=== PATIENT | male | born 1995 | race Caucasian/White ===

== ENCOUNTER 2017-09-16 17:30 | Emergency (ER) | payer OTHER ==
[2017-09-16 17:36] VITALS: BP 126/75; PULSE 80; TEMP 98.1; BMI 31.6
--- NOTE | 2017-09-16 18:03 | PDOC ---
History of Present Illness - General Chief Complaint: Injury Stated Complaint: INJURY Time Seen by Provider: 09/16/17 17:46 History Source: Patient Exam Limitations: No Limitations - History of Present Illness Initial Comments: 09/16/17 18:06 Patient came for evaluation of left wrist pain. States 2 days ago while at work , was lifting heavy garbage bags and felt an acute onset of pain with a small pop to his left breast. Since that time has had difficulty carrying heavy items with pain reproduced at wrist joint primarily dorsum of hand. No numbness or tingling to fingers, no swelling, no fevers or erythema. Occurred: reports: yesterday Severity: reports: mild, moderate Pain Location: reports: upper extremity (left wrist) Method of Injury: Yes: unknown, other (heavy lifting ) Modifying Factors: improves with: cold therapy Associated Symptoms (Fall): denies symptoms Past History - Travel Traveled outside of the country in the last 30 days: No Close contact w/someone who was outside of country & ill: No - Past Medical History Allergies/Adverse Reactions: Allergies Allergy/AdvReac Type Severity Reaction Status Date / Time No Known Allergies Allergy Verified 09/16/17 17:36 Home Medications: Ambulatory Orders Ibuprofen 400 mg PO Q6H PRN #30 tablet 09/16/17 COPD: No - Suicide/Smoking/Psychosocial Hx Smoking History: Never smoked Have you smoked in the past 12 months: No Information on smoking cessation initiated: No Hx Alcohol Use: No Drug/Substance Use Hx: No Substance Use Type: None Trauma Specific PMHX - Complaint Specific PMHX Back Injury: No Neck Injury: No Review of Systems - Review of Systems Able to Perform ROS?: Yes Is the patient limited Qatari proficient: Yes Constitutional: Yes: Symptoms Reported, See HPI. No: Malaise HEENTM: No: Symptoms Reported Musculoskeletal: Yes: Symptoms Reported, See HPI, Joint Pain, Joint Swelling Integumentary: Yes: Symptoms Reported, See HPI Neurological: No: Symptoms reported All Other Systems: Reviewed and Negative *Physical Exam - Vital Signs Last Vital Signs Temp Pulse Resp BP Pulse Ox 98.1 F 80 18 126/75 100 09/16/17 17:33 09/16/17 17:33 09/16/17 17:33 09/16/17 17:33 09/16/17 17:33 - Physical Exam General Appearance: Yes: Nourished, Appropriately Dressed, Mild Distress HEENT: positive: JACQUELINE, Normal ENT Inspection, TMs Normal, Pharynx Normal Neck: positive: Supple. negative: Tender Musculoskeletal: positive: Normal Inspection Extremity: positive: Normal Capillary Refill, Normal Inspection, Normal Range of Motion (strong grasp, flexion and extension to all digits against resistance but some movement primarily lateral aspect of hand reproduces pain to dorsum and wrist area. Strong pulses, no bone tenderness to distal ulna or radius, no carpal bone tenderness. No true swelling or ecchymoses noted.). 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, Fully Oriented, Alert, Normal Mood/ Affect, Normal Response, Motor Strength 10/13 ED Treatment Course - RADIOLOGY Radiology Studies Ordered: Category Date Time Status WRIST-LEFT [RAD] Stat Radiology 09/16/17 17:46 Ordered *DC/Admit/Observation/Transfer Diagnosis at time of Disposition: Left wrist sprain Qualifiers: Encounter type: initial encounter Qualified Code(s): S63.502A - Unspecified sprain of left wrist, initial encounter - Discharge Dispostion Disposition: HOME Condition at time of disposition: Stable Admit: No - Referrals Referrals: Yovani Hilton MD [Staff Physician] - - Patient Instructions Printed Discharge Instructions: DI for Wrist Sprain Additional Instructions: Rest, ice to area on and off for 15 minutes 4-6 times a day Avoid heavy lifting or exercise until pain and swelling is resolved or until further directed Keep area highly elevated to reduce swelling Use splints/Madi wrap as directed Followup with orthopedist in one to 2 days if not improving, if significantly improved may wait one week for followup with orthopedist May use ibuprofen 2-200 ( 400mg tabs) mg tablets every 6 hours as needed for pain - Post Discharge Activity Forms/Work/School Notes: Back to Work
== END 2017-09-16 18:19 | disposition home or self-care (01) ==
LOC: JERFT 17:30
DX: S63.502A Unspecified sprain of left wrist, initial encounter (principal); X50.0XXA Overexertion from strenuous movement or load, initial encounter; Y93.89 Activity, other specified; Y92.511 Restaurant or cafe as the place of occurrence of the external cause; Y99.0 Civilian activity done for income or pay
CPT/HCPCS: 99281-25

== ENCOUNTER 2017-10-07 12:04 | Emergency (ER) | payer OTHER | END 2017-10-07 13:30 | disposition home or self-care (01) | LOC: JERFT 12:04 | DX: J01.90 Acute sinusitis, unspecified (principal) | CPT/HCPCS: 87070; 87430; 99281-25 ==

== ENCOUNTER 2017-12-05 20:53 | Emergency (ER) | payer OTHER ==
--- NOTE | 2017-12-05 20:57 | PDOC ---
Rapid Medical Evaluation Time Seen by Provider: 12/05/17 20:54 Medical Evaluation: Allergies Allergy/AdvReac Type Severity Reaction Status Date / Time No Known Allergies Allergy Verified 10/07/17 12:08 12/05/17 20:54 I have performed a brief in-person evaluation of this patient. The patient presents with a chief complaint of: chest pain after ETOH consumption Pertinent physical exam findings: Appears anxious. PE- WNL. I have ordered the following: EKG, labs The patient will proceed to the ED for further evaluation. Discharge Disposition - Diagnosis Chest pain - Referrals - Patient Instructions - Post Discharge Activity
[2017-12-05 21:04] VITALS: BP 134/85; PULSE 103; TEMP 98.5; BMI 29.0
[2017-12-05] MEDS ORDERED: SODIUM CHLORIDE 1,000 ML IV STA (21:47)
--- NOTE | 2017-12-05 21:49 | PDOC ---
Attending Attestation - Resident Resident Name: Faustino Lambert - ED Attending Attestation I have performed the following: I have examined & evaluated the patient, The case was reviewed & discussed with the resident, I agree w/resident's findings & plan, Exceptions are as noted <Juanito Srivastava - Last Filed: 12/05/17 21:49> - HPI HPI: 12/05/17 22:02 The patient is a 22 year old male with no significant past medical history who presents with chest pain, shortness of breath and a feeling of doom prior to presenting to the Emergency Department today. The patient states that he was having a drink at a bar when he noticed it tasted funny. He reports that he believes he was unknowingly drug. The patient endorses associated palpitations, nausea, and vomiting. The patient requests a urinary toxicology screen. - Physicial Exam PE: 12/05/17 22:02 GENERAL: (+) Anxious appear, fidgeting HEENT: Normocephalic, atraumatic. PERRL, EOM intact. CARDIOVASCULAR: (+) Normal S1, S2. Tachycardia. Regular rhythm. PULMONARY: Clear to auscultation bilaterally. ABDOMEN: Soft, non-distended, non-tender. EXTREMITIES: Normal ROM in all four extremities. No gross deformities. SKIN: Warm, dry. No rash NEUROLOGICAL: No focal neurological deficits. - Medical Decision Making 12/05/17 22:02 Documentation prepared by Elvis Damon, acting as medical laboratory assistant for Juanito Srivastava DO. <Elvis Damon - Last Filed: 12/05/17 22:03>
--- NOTE | 2017-12-05 21:53 | PDOC ---
History of Present Illness - General History Source: Patient Exam Limitations: No Limitations - History of Present Illness Initial Comments: 12/05/17 21:51 Patient is a 22M with no significant medical history here today complaining of chest pain, shortness of breath, palpitations and a feeling of doom starting at about 5pm today. He states that he was at a bar having a few drinks before work when his last drink "tasted funny". He states that while he was at work he felt a sudden panic and desire to just get out of there. He denies fevers, chills. Endorses some nausea and vomiting. Patient denies leg swelling, recent travel, and prior blood clot. Patient denies history of cocaine or other drug abuse. Patient is requesting drug screening for possible poisoning. Patient states that he is feeling a little better now, but still very anxious. <Faustino Lambert - Last Filed: 12/05/17 21:48> <Juanito Srivastava - Last Filed: 12/06/17 00:01> - General Chief Complaint: Chest Pain Stated Complaint: CHEST PAIN Time Seen by Provider: 12/05/17 20:54 Past History - Past Medical History Asthma: Yes COPD: No DVT: No Dementia: No - Suicide/Smoking/Psychosocial Hx Smoking History: Current some day smoker Have you smoked in the past 12 months: No Number of Cigarettes Smoked Daily: 1 Information on smoking cessation initiated: Yes 'Breaking Loose' booklet given: 12/05/17 Hx Alcohol Use: Yes Drug/Substance Use Hx: No Substance Use Type: None <Faustino Lambert - Last Filed: 12/05/17 21:48> <Juanito Srivastava - Last Filed: 12/06/17 00:01> - Past Medical History Allergies/Adverse Reactions: Allergies Allergy/AdvReac Type Severity Reaction Status Date / Time No Known Allergies Allergy Verified 10/07/17 12:08 Home Medications: Ambulatory Orders Amox-Tr/K Cl [Augmentin - 875Mg Tablet] 1 tab PO BID #10 tablet 10/07/17 Review of Systems - Review of Systems Comments:: 12/05/17 21:54 GENERAL/CONSTITUTIONAL: No fever or chills. No weakness. HEAD, EYES, EARS, NOSE AND THROAT: No change in vision. No sore throat. CARDIOVASCULAR: +chest pain +shortness of breath RESPIRATORY: No cough, wheezing, or hemoptysis. GASTROINTESTINAL: +nausea, +vomiting. Negative diarrhea or constipation. GENITOURINARY: No dysuria, frequency, or change in urination. MUSCULOSKELETAL: No joint or muscle swelling or pain. No neck or back pain. SKIN: No rash NEUROLOGIC: No headache, vertigo, loss of consciousness, or change in strength/ sensation. ENDOCRINE: No increased thirst. No abnormal weight change HEMATOLOGIC/LYMPHATIC: No anemia, easy bleeding, or history of blood clots. ALLERGIC/IMMUNOLOGIC: No hives or skin allergy. <Faustino Lambert - Last Filed: 12/05/17 21:48> *Physical Exam - Vital Signs Last Vital Signs Temp Pulse Resp BP Pulse Ox 98.5 F 103 H 20 134/85 97 12/05/17 21:01 12/05/17 21:01 12/05/17 21:12/05/17 21:01 12/05/17 21:01 - Physical Exam Comments: 12/05/17 21:56 GENERAL: Awake, alert, and fully oriented, fidgeting with hands, anxious appearing HEAD: No signs of trauma, normocephalic, atraumatic EYES: PERRLA, EOMI, sclera anicteric, conjunctiva clear ENT: Auricles normal inspection, hearing grossly normal, nares patent, oropharynx clear without exudates. Moist mucosa NECK: Normal ROM, supple, no lymphadenopathy, JVD, or masses LUNGS: No distress, speaks full sentences, clear to auscultation bilaterally HEART: Regular rate and rhythm, normal S1 and S2, no murmurs, rubs or gallops, peripheral pulses normal and equal bilaterally. ABDOMEN: Soft, nontender, normoactive bowel sounds. No guarding, no rebound. No masses EXTREMITIES: Normal inspection, Normal range of motion, no edema. No clubbing or cyanosis. NEUROLOGICAL: Cranial nerves II through XII grossly intact. Normal speech, normal gait, no focal sensorimotor deficits SKIN: Warm, Dry, normal turgor, no rashes or lesions noted. <Faustino Lambert - Last Filed: 12/05/17 21:48> - Vital Signs Last Vital Signs Temp Pulse Resp BP Pulse Ox 98.5 F 103 H 20 134/85 97 12/05/17 21:12/05/17 21:01 12/05/17 21:01 12/05/17 21:01 12/05/17 21:01 <GarydilipJuanito - Last Filed: 12/06/17 00:01> ED Treatment Course - LABORATORY CBC & Chemistry Diagram: 12/05/17 21:28 12/05/17 21:28 - ADDITIONAL ORDERS Additional order review: Laboratory Results 12/05/17 12/05/17 12/05/17 22:54 22:05 21:28 PT with INR INR Sodium 138 Potassium 4.3 Chloride 104 Carbon Dioxide 26 Anion Gap 8 BUN 21 H Creatinine 1.0 Creat Clearance w eGFR > 60 Random Glucose 128 H Calcium 9.0 Magnesium 1.9 Total Bilirubin 0.6 AST 36 ALT 85 H Alkaline Phosphatase 84 Creatine Kinase 431 H Creatine Kinase Index 0.7 CK-MB (CK-2) 3.27 Troponin I < 0.02 Total Protein 7.2 Albumin 4.2 Urine Color Ltyellow Urine Appearance Clear Urine pH 5.0 Ur Specific Wallace 1.018 Urine Protein Negative Urine Glucose (UA) Negative Urine Ketones Negative Urine Blood Negative Urine Nitrite Negative Urine Bilirubin Negative Urine Urobilinogen Negative Ur Leukocyte Esterase Negative Opiates Screen Negative Methadone Screen Negative Barbiturate Screen Negative Phencyclidine Screen Negative Ur Amphetamines Screen Negative MDMA (Ecstasy) Screen Negative Benzodiazepines Screen Negative Cocaine Screen Negative U Marijuana (THC) Screen Positive 12/05/17 21:28 PT with INR 11.70 INR 1.04 Sodium Potassium Chloride Carbon Dioxide Anion Gap BUN Creatinine Creat Clearance w eGFR Random Glucose Calcium Magnesium Total Bilirubin AST ALT Alkaline Phosphatase Creatine Kinase Creatine Kinase Index CK-MB (CK-2) Troponin I Total Protein Albumin Urine Color Urine Appearance Urine pH Ur Specific Wallace Urine Protein Urine Glucose (UA) Urine Ketones Urine Blood Urine Nitrite Urine Bilirubin Urine Urobilinogen Ur Leukocyte Esterase Opiates Screen Methadone Screen Barbiturate Screen Phencyclidine Screen Ur Amphetamines Screen MDMA (Ecstasy) Screen Benzodiazepines Screen Cocaine Screen U Marijuana (THC) Screen 12/05/17 21:28 RBC 5.06 MCV 85.8 MCHC 33.6 RDW 13.9 MPV 10.3 Neutrophils % 67.7 Lymphocytes % 25.4 Monocytes % 5.0 Eosinophils % 1.4 Basophils % 0.5 - Medications Given in the ED: ED Medications Discontinued Medications Generic Name Dose Route Start Last Admin Trade Name Freq PRN Reason Stop Dose Admin Sodium Chloride 1,000 mls @ 1,000 mls/hr 12/05/17 21:47 12/05/17 22:26 Normal Saline - IV 12/05/17 22:46 1,000 mls/hr ASDIR STA Administration Lorazepam 0.5 mg 12/05/17 21:50 12/05/17 22:26 Ativan Injection - IVPUSH 12/05/17 21:51 0.5 mg ONCE ONE Administration <Juanito Srivastava - Last Filed: 12/06/17 00:01> Medical Decision Making - Medical Decision Making 12/05/17 21:57 Patient is 22M with no significant medical history here today with chest pain, shortness of breath and palpitations. Tachycardic in triage, EKG shows sinus tachycardia with no st elevations/depressions, no signficiant t wave abnormalities, normal intervals, normal axis. DDx is weighted towards panic attack, acs, arrhythmia, possibly cocaine related chest pain. Will do cardiac workup and treat with fluids and ativan. Signed out to Dr Canchola. <Faustino Lambert - Last Filed: 12/05/17 21:48> *DC/Admit/Observation/Transfer <Faustino Lambert - Last Filed: 12/05/17 21:48> <Juanito Srivastava - Last Filed: 12/06/17 00:01> Diagnosis at time of Disposition: Chest pain Qualifiers: Chest pain type: unspecified Qualified Code(s): R07.9 - Chest pain, unspecified - Discharge Dispostion Disposition: HOME Condition at time of disposition: Stable - Patient Instructions Printed Discharge Instructions: DI for Chest Pain Additional Instructions: You were seen in the ER for chest pain. We did lab work on your blood and urine , an electrocardiogram, and a chest x-ray, and we did not find any concerning abnormalities. Your symptoms improved with the medications we gave you in the ER. After our assessment, we do not believe you are having a medical emergency at this time, and we believe you are safe to go home. Take over the counter pain medications for your pain, as instructed on the medication label. Please follow up with your regular PCP doctor in 1-3 days. Call their clinic as soon as possible, tell them you were seen in the ER, and tell them you need an appointment. If you have any new or worsening symptoms, especially worsening chest pain, jaw pain, shoulder/arm pain, shortness of breath, sweats, nausea, loss of consciousness, palpitations, or other symptoms, please come back to the ER at any time (24 hours a day). If you are having severe or life threatening symptoms, or symptoms that make it unsafe to drive or have someone drive you, please call 911. Usted fue visto en la jose guadalupe de emergencias por dolor en el pecho. Hicimos anlisis de laboratorio con [place] beulah y orina, un electrocardiograma y diana radiografa de trax, y no encontramos ninguna anomala preocupante. Jodee sntomas mejoraron con los medicamentos que le dimos en la jose guadalupe de emergencias. Despus de nuestra evaluacin, no creemos que est teniendo diana emergencia mdica en mary momento, y creemos que est seguro de irse a casa. [place] el medicamento contra el dolor para [place] dolor, melida se indica en la etiqueta del medicamento. Realice un seguimiento con [place] mdico PCP regular en 1-3 onofre. Llame a [place] clnica lo antes posible, dgales que lo vieron en la jose guadalupe de emergencias y dgales que necesita diana gentry. Si usted tiene algn sntoma nuevo o que empeora, especialmente el empeoramiento de dolor en el pecho, dolor en la mandbula, dolor de hombro / brazo, falta de aliento, sudoracin, nuseas, prdida del conocimiento, palpitaciones u otros sntomas, por favor vuelve a la jose guadalupe de emergencia en cualquier momento ( 24 horas al brian). Si tiene sntomas graves o que amenazan la erick, o sntomas que hacen que sea inseguro conducir o que alguien lo lleve, llame al 911. Print Language: GERMAN - Post Discharge Activity Forms/Work/School Notes: Back to Work
--- NOTE | 2017-12-05 22:06 | PDOC ---
*Physical Exam - Vital Signs Last Vital Signs Temp Pulse Resp BP Pulse Ox 98.5 F 103 H 20 134/85 97 12/05/17 21:01 12/05/17 21:01 12/05/17 21:01 12/05/17 21:01 12/05/17 21:01 12/05/17 22:04 Care endorsed to me by Dr. Lambert at the end of his shift. 22 YOM without PMH who p/w CP, SOB, feeling of doom onset prior to going to work while he was at a bar and drinking EtOH. He was concerned that his drink was poisoned because it tasted strange. EKG with sinus tachycardia, t-wave inversion in III, pending cardiac workup. Given IVF and small amount of Ativan. ED Treatment Course - LABORATORY CBC & Chemistry Diagram: 12/05/17 21:28 12/05/17 21:28 *DC/Admit/Observation/Transfer Diagnosis at time of Disposition: Chest pain Qualifiers: Chest pain type: unspecified Qualified Code(s): R07.9 - Chest pain, unspecified - Discharge Dispostion Condition at time of disposition: Stable Decision to Admit order: No - Referrals - Patient Instructions Printed Discharge Instructions: DI for Chest Pain Additional Instructions: You were seen in the ER for chest pain. We did lab work on your blood and urine , an electrocardiogram, and a chest x-ray, and we did not find any concerning abnormalities. Your symptoms improved with the medications we gave you in the ER. After our assessment, we do not believe you are having a medical emergency at this time, and we believe you are safe to go home. Take over the counter pain medications for your pain, as instructed on the medication label. Please follow up with your regular PCP doctor in 1-3 days. Call their clinic as soon as possible, tell them you were seen in the ER, and tell them you need an appointment. If you have any new or worsening symptoms, especially worsening chest pain, jaw pain, shoulder/arm pain, shortness of breath, sweats, nausea, loss of consciousness, palpitations, or other symptoms, please come back to the ER at any time (24 hours a day). If you are having severe or life threatening symptoms, or symptoms that make it unsafe to drive or have someone drive you, please call 911. Usted fue visto en la jose guadalupe de emergencias por dolor en el pecho. Hicimos anlisis de laboratorio con [place] beulah y orina, un electrocardiograma y diana radiografa de trax, y no encontramos ninguna anomala preocupante. Jodee sntomas mejoraron con los medicamentos que le dimos en la jose guadalupe de emergencias. Despus de nuestra evaluacin, no creemos que est teniendo diana emergencia mdica en mary momento, y creemos que est seguro de irse a casa. [place] el medicamento contra el dolor para [place] dolor, melida se indica en la etiqueta del medicamento. Realice un seguimiento con [place] mdico PCP regular en 1-3 onofre. Llame a [place] clnica lo antes posible, dgales que lo vieron en la jose guadalupe de emergencias y dgales que necesita diana gentry. Si usted tiene algn sntoma nuevo o que empeora, especialmente el empeoramiento de dolor en el pecho, dolor en la mandbula, dolor de hombro / brazo, falta de aliento, sudoracin, nuseas, prdida del conocimiento, palpitaciones u otros sntomas, por favor vuelve a la jose guadalupe de emergencia en cualquier momento ( 24 horas al brian). Si tiene sntomas graves o que amenazan la erick, o sntomas que hacen que sea inseguro conducir o que alguien lo lleve, llame al 911. Print Language: SLOVENIAN - Post Discharge Activity
[2017-12-05 22:10] LABS: BASO % 0.5 % (0-2.0); EOS % 1.4 % (0-4.5); HEMATOCRIT 43.4 % (35.4-49); HEMOGLOBIN 14.6 GM/dL (11.7-16.9); LYMPH % 25.4 % (8-40); MCH 28.9 pg (25.7-33.7); MCHC 33.6 g/dl (32.0-35.9); MEAN CELL VOLUME 85.8 fl (80-96); MEAN PLT VOLUME 10.3 fl (7.5-11.1); NEUT % 67.7 % (42.8-82.8); PLATELET COUNT 203 K/MM3 (134-434); RBC 5.06 M/mm3 (4.00-5.60); RDW 13.9 % (11.9-15.9)
[2017-12-05] MEDS ORDERED: LORazepam 2 MG/ML SDV VIAL ONE (22:22)
[2017-12-05 22:24] LABS: URINE APPEARANCE CLEAR; URINE BILIRUBIN NEGATIVE (<2.0 mg/dL); URINE COLOR LTYELLOW; URINE GLUCOSE (UA) NEGATIVE (NEGATIVE); URINE KETONE NEGATIVE (NEGATIVE); URINE LEUK ESTERASE NEGATIVE (NEGATIVE); URINE NITRITE NEGATIVE (NEGATIVE); URINE PROTEIN NEGATIVE (NEGATIVE); URINE UROBILINOGEN NEGATIVE mg/dL (0.2-1.0)
[2017-12-05 22:25] LABS: INR 1.04 (0.82-1.09); PROTHROMBIN TIME (PATIENT) 11.7 SEC (9.7-13.0)
[2017-12-05 22:46] LABS: ALBUMIN 4.2 g/dl (3.4-5.0); ANION GAP 8 (8-16); BILIRUBIN,TOTAL 0.6 mg/dL (0.2-1.0); BLOOD UREA NITROGEN 21 mg/dL (7-18); CHLORIDE 104 mmol/L (98-107); CO2 26 mmol/L (21-32); GLUCOSE,RANDOM 128 mg/dL (74-106); SGPT/ALT 85 U/L (12-78); SODIUM 138 mmol/L (136-145); TOT PROT 7.2 g/dl (6.4-8.2)
[2017-12-05 22:49] LABS: ALK PHOS 84 U/L (45-117)
[2017-12-05 22:50] LABS: MAGNESIUM 1.9 mg/dL (1.8-2.4); POTASSIUM 4.3 mmol/L (3.5-5.1); SGOT/AST 36 U/L (15-37)
[2017-12-05 23:49] LABS: COCAINE, UR NEGATIVE ng/ml (CUTOFF=300); METHADONE, UR NEGATIVE ng/ml (CUTOFF=300); OPIATES, URI NEGATIVE ng/ml (CUTOFF=300); PHENCYCLIDINE,URINE NEGATIVE ng/ml (CUTOFF=25); URINE AMPHETAMINES NEGATIVE ng/ml (CUTOFF=500); URINE BARBITURATES NEGATIVE ng/ml (CUTOFF=200); URINE BENZODIAZEPINES NEGATIVE ng/ml (CUTOFF=200)
--- NOTE | 2017-12-06 16:19 | EKG ---
Test Reason : Blood Pressure : / mmHG Vent. Rate : 108 BPM Atrial Rate : 108 BPM P-R Int : 118 ms QRS Dur : 084 ms QT Int : 326 ms P-R-T Axes : 048 065 019 degrees QTc Int : 436 ms SINUS TACHYCARDIA OTHERWISE NORMAL ECG NO PREVIOUS ECGS AVAILABLE Confirmed by UMM MURRAY MD ([id number]) on 12/06/2017 4:19:14 PM Referred By: Confirmed By:UMM MURRAY MD
== END 2017-12-05 23:54 | disposition home or self-care (01) ==
LOC: JER 20:53
PROC: 3E0337Z Introduction of Electrolytic and Water Balance Substance into Peripheral Vein, Percutaneous Approach (ICD-10-PCS; principal; 2017-12-05)
PROC: 3E033NZ Introduction of Analgesics, Hypnotics, Sedatives into Peripheral Vein, Percutaneous Approach (ICD-10-PCS; 2017-12-05)
DX: R07.9 Chest pain, unspecified (principal)
CPT/HCPCS: 36415; 80053; 80307; 81003; 82550; 82553; 83735; 84484; 85025; 85610; 93005; 93010; 99282-25; J7030

== ENCOUNTER 2021-07-01 09:21 | Emergency (ER) | payer OTHER ==
[2021-07-01 09:43] VITALS: BP 128/79; PULSE 65; TEMP 98; BMI 26.6
== END 2021-07-01 12:10 ==
LOC: JER 09:21
DX: J40 Bronchitis, not specified as acute or chronic (principal)
CPT/HCPCS: 71045-TC-FY; 99284-25; C9803; U0003; U0005

== ENCOUNTER 2023-11-19 09:16 | Emergency (ER) | payer OTHER ==
[2023-11-19 09:22] VITALS: BP 122/72; PULSE 60; RESP 18; TEMP 98.2; BMI 29.5
[2023-11-19] MEDS ORDERED: LIDOCAINE 4% PATCH TP ONE (09:56)
[2023-11-19] MEDS ORDERED: ACETAMINOPHEN 500 MG TABLET (FP) ONE (09:56)
[2023-11-19] MEDS ORDERED: KETOROLAC TROMETHAMINE 30 MG/1 ML VIAL ONE (09:56)
[2023-11-19] MEDS: ACETAMINOPHEN 500 MG TABLET (FP) PO ONE (10:04)
[2023-11-19] MEDS: LIDOCAINE 4% PATCH TP ONE (10:04)
[2023-11-19] MEDS: KETOROLAC TROMETHAMINE 30 MG/1 ML VIAL IM ONE (10:04)
[2023-11-19] MEDS ORDERED: METHOCARBAMOL 500 MG TABLET ONE (10:32)
[2023-11-19] MEDS: METHOCARBAMOL 500 MG TABLET PO ONE (10:35)
[2023-11-19] MEDS ORDERED: LIDOCAINE PATCH REMOVAL MC SCH (22:00)
== END 2023-11-19 11:50 | disposition home or self-care (01) ==
LOC: JERFT 09:16
PROC: 3E0133Z Introduction of Anti-inflammatory into Subcutaneous Tissue, Percutaneous Approach (ICD-10-PCS; principal; 2023-11-19)
DX: M79.10 Myalgia, unspecified site (principal); M54.50 Low back pain, unspecified
CPT/HCPCS: 99284-25

== ENCOUNTER 2024-01-21 09:37 | Emergency (ER) | payer OTHER ==
[2024-01-21 09:49] VITALS: BP 149/85; PULSE 74; RESP 16; TEMP 97; BMI 28.6
[2024-01-21] MEDS ORDERED: METOCLOPRAMIDE HCL INJECTION 10 MG/2 ML VIAL ONE (11:07)
[2024-01-21] MEDS ORDERED: ACETAMINOPHEN INJECTION 100 ML IVPB ONE (11:08)
[2024-01-21] MEDS: ACETAMINOPHEN 1000 MG/100 ML BAG IVPB ONE (11:24)
[2024-01-21] MEDS: LACTATED RINGERS SOLUTION 1000 ML INFUS.BAG IV ONE (11:24)
[2024-01-21] MEDS: METOCLOPRAMIDE HCL INJECTION 10 MG/2 ML VIAL IVPUSH ONE (11:24)
[2024-01-21 11:28] LABS: BASO % 0.4 % (0-2.0); EOS % 0.8 % (0-4.5); HEMATOCRIT 45.5 % (35.4-49); HEMOGLOBIN 15.6 GM/dL (11.7-16.9); LYMPH % 13.5 % (8-40); MCH 30.1 pg (25.7-33.7); MCHC 34.2 g/dl (32.0-35.9); MEAN CELL VOLUME 87.9 fl (80-96); MEAN PLT VOLUME 9.9 fl (7.5-11.1); MONO % 5.4 % (3.8-10.2); NEUT % 79.9 % (42.8-82.8); PLATELET COUNT 183 10^3/uL (134-434); RBC 5.17 M/mm3 (4.00-5.60); RDW 13.9 % (11.9-15.9)
[2024-01-21 11:53] LABS: POTASSIUM 4.3 mmol/L (3.5-5.1)
[2024-01-21 11:55] LABS: CALCIUM 9.3 mg/dL (8.5-10.1)
[2024-01-21 11:56] LABS: ALBUMIN 4.4 g/dl (3.4-5.0); BLOOD UREA NITROGEN 18.5 mg/dL (7-18)
[2024-01-21 11:59] LABS: CREATININE 0.9 mg/dL (0.55-1.3)
[2024-01-21 12:01] LABS: BILIRUBIN,TOTAL 0.6 mg/dL (0.2-1); TOT PROT 7.2 g/dl (6.4-8.2)
== END 2024-01-21 13:18 | disposition home or self-care (01) ==
LOC: JER 09:37
PROC: 3E033NZ Introduction of Analgesics, Hypnotics, Sedatives into Peripheral Vein, Percutaneous Approach (ICD-10-PCS; principal; 2024-01-21)
PROC: 3E033GC Introduction of Other Therapeutic Substance into Peripheral Vein, Percutaneous Approach (ICD-10-PCS; 2024-01-21)
DX: R51.9 Headache, unspecified (principal); E86.0 Dehydration; R11.2 Nausea with vomiting, unspecified
CPT/HCPCS: 36415; 80053; 85025; 99284-25; J0131